=== PATIENT | male | born 1940 | race Caucasian/White ===

== ENCOUNTER 2022-05-24 14:22 | Emergency (ER) | payer OTHER ==
--- NOTE | 2022-05-24 14:28 | ED Fall/Injury ---
General Stated Complaint: FALL/HEAD History of Present Illness Date Seen by Provider: May 24, 2022 Time Seen by Provider: 14:27 Initial Comments 82-year-old male with PMH of DM2/HTN/history of brain clot/unknown if on blood thinner, but patient is taking baby aspirin daily, is here with complaints of a fall last night at 9 PM where he missed a step coming off the deck and fell 1 foot down , sitting forward onto cement. Today patient feels sore with pain on his right wrist and forearm and unable to flex his right arm all the way, with left-sided rib pain. Patient reports mild head strike and his forehead. Denies LOC, dizziness, palpitations, chest pain, blurry vision, hearing abnormalities. Patient is able to ambulate on his own. Allergies and Home Medications Allergies Coded Allergies: No Known Drug Allergies (Unverified , 05/24/22) Patient Home Medication List Home Medication List Reviewed: Yes Review of Systems Review of Systems Constitutional: no symptoms reported Eyes: No Symptoms Reported Ears, Nose, Mouth, Throat: see HPI Respiratory: no symptoms reported Cardiovascular: no symptoms reported Gastrointestinal: no symptoms reported Genitourinary: no symptoms reported Musculoskeletal: see HPI, joint pain, muscle stiffness Skin: no symptoms reported Psychiatric/Neurological: No Symptoms Reported Physical Exam Vital Signs Vital Signs - First Documented 05/24/22 14:46 Temp 37.0 Pulse 88 Resp 16 B/P (MAP) 181/92 (121) Pulse Ox 95 O2 Delivery Room Air Capillary Refill : Height, Weight, BMI Height: '" Weight: lbs. oz. kg; BMI Method: General Appearance: WD/WN, no apparent distress HEENT: PERRL/EOMI, normal ENT inspection Neck: non-tender, full range of motion, supple, normal inspection Cardiovascular: regular rate, rhythm Respiratory: lungs clear, normal breath sounds, no respiratory distress, no accessory muscle use, other (Tenderness to left-sided ribs 9, 10, 11, 12.) Gastrointestinal: normal bowel sounds, non tender, soft Back: normal inspection, no vertebral tenderness Extremities: normal inspection, other (Right upper extremity: No localized tenderness however patient is unable to completely flex the arm at the elbow without having pain. Range of motion is restricted due to this pain on flexion. N/V bundle intact. 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 FALL: NONDISPLACED LEFT 7th RIB/ Left elbow effusion: - CT HEAD: No acute findings -Unknown if patient is on a blood thinner or not, but since patient is unsure, will do CT scan to rule out a bleed - XR RIGHT ELBOW/ FOREARM/ WRIST: Right elbow effusion. No displaced fracture identified. - XR RIBS/ CHEST: nondisplaced left posterolateral 7th rib, no acute lung changes except atelectasis at bases fracture. - Incentive spirometry to help expand lung volumes - Advised to follow up for repeat x-ray of right forearm/ elbow, if pain persists past 7 days without improvement, since some fractures only show up on x-ray after a week. - Advised Tylenol or ibuprofen as needed for mild to moderate pain, as well as [id number] lidoderm patches. Prescription given for Percocet, take 1 tablet every 6 hours as needed for severe pain - Sling and ice advised for arm - Follow up with PCP in the next 3 to 7 days. Call for appointment. -Patient is from [place] and visiting in [place], so advised him to make a PCP appointment once he gets back home -The patient was seen in the ED, and treated appropriately to presentation at a specific point in time. Patient is informed that there is a possibility that disease and illness can evolve and change in acuity rapidly or slowly after patient is discharged from the ER. Precautionary advice given to the patient for immediate return to ER if symptoms worsen or do not resolve, and to seek emergency care sooner rather than later. Pt also advised on the importance of PCP follow up and compliance with management and follow up plan with PCP and/or specialist, as this is part of the management plan. Pt verbally expressed understanding. Diagnostic Imaging Diagonstic Imaging: Xray, CT Plain Films/CT/US/NM/MRI: forearm, elbow, chest, head Comments [facility] [place] NAME: BIBI BERNARD [facility] REC#: [id number] PT STATUS: REG ER : 1940 PHYSICIAN: LINDSAY POLLACK MD ADMIT DATE: 05/24/22/ER FS Signed Date of Exam:05/24/22 RIBS/BILATERAL WITH CHEST INDICATION: Fall. Bilateral rib pain. FINDINGS: There is mild atelectasis at the lung bases. The lungs are otherwise clear. There is no pleural collection or hemothorax. There is no pneumothorax. Pulmonary vascularity appears appropriate. The bilateral rib series demonstrates no finding of a right-sided rib fracture. There is a subtle questionable fracture of the posterior lateral left 7th rib. This is nondisplaced. IMPRESSION: 1. Questionable nondisplaced left posterolateral 7th rib fracture. No other rib fractures are identified. 2. Basilar pulmonary atelectasis. Lungs otherwise appear clear. No pneumothorax or hemothorax. Dictated by: Dictated on workstation # [id number] Dict: 05/24/22 1519 Trans: 05/24/22 1524 [facility] [id number] Interpreted by: MICHELLE ALFARO MD Electronically signed by: MICHELLE ALFARO MD 05/24/22 1524 [facility] [place] NAME: BIBI BERNARD [facility] REC#: [id number] PT STATUS: REG ER : 1940 PHYSICIAN: LINDSAY POLLACK MD ADMIT DATE: 05/24/22/ER FS Draft Date of Exam:05/24/22 FOREARM 2 VIEW RIGHT INDICATION: Right forearm pain after fall. COMPARISON: None. DISCUSSION: Two views of the right forearm were obtained. Right elbow effusion is noted. No fracture or dislocation otherwise. The alignment is anatomic. No foreign body. IMPRESSION: Small right elbow effusion. No fracture identified otherwise. Dictated on workstation # [id number] Dict: 05/24/22 1519 Trans: 05/24/22 1523 [facility] [id number] Interpreted by: PHILIP LEIVA MD Electronically signed by: [facility] [place] [place] NAME: BIBI BERNARD [facility] REC#: [id number] PT STATUS: REG ER : 1940 PHYSICIAN: LINDSAY POLLACK MD ADMIT DATE: 05/24/22/ER FS Draft Date of Exam:05/24/22 ELBOW 3 VIEW RIGHT INDICATION: Fall with right elbow pain. COMPARISON: None. DISCUSSION: Three views of the right elbow were obtained. Small effusion is present. Mild degenerative disease noted. No displaced fracture identified. An occult fracture cannot be excluded. No dislocation. IMPRESSION: Right elbow effusion. No displaced fracture identified. Dictated on workstation # [id number] Dict: 05/24/22 1518 Trans: 05/24/22 1519 [facility] [id number] Interpreted by: PHILIP LEIVA MD Electronically signed by: NAME: BIBI BERNARD [facility] REC#: [id number] PT STATUS: REG ER : 1940 PHYSICIAN: LINDSAY POLLACK MD ADMIT DATE: 05/24/22/ER FS Draft Date of Exam:05/24/22 CT HEAD WO PROCEDURE: CT head without contrast. TECHNIQUE: Multiple contiguous axial images were obtained through the brain without the use of intravenous contrast. Auto Exposure Controls were utilized during the CT exam to meet ALARA standards for radiation dose reduction. INDICATION: Fall. Head injury and head pain. FINDINGS: There is no CT finding of acute intracranial hemorrhage. There is no evidence of an abnormal extra-axial collection. There is age related global volume loss. There is no finding of hydrocephalus. There is no territorial loss of osuna-white differentiation or evidence of vasogenic edema. Basilar cisterns are patent. The posterior fossa demonstrates no acute process. The mastoid air cells are clear. The paranasal sinuses are clear. Note is made of advanced atherosclerotic calcifications within the carotid siphons. The vasculature intracranially is of uniform density. This may relate to some hemoconcentration. There is no acute calvarial abnormality. IMPRESSION: Age-related global volume loss without CT evidence of an acute intracranial abnormality. Dictated on workstation # [id number] Dict: 05/24/22 1517 Trans: 05/24/22 1522 [facility] [id number] Interpreted by: MICHELLE ALFARO MD Electronically signed by: Departure Impression Primary Impression: Fall (on) (from) other stairs and steps, initial encounter Additional Impressions: Closed traumatic nondisplaced fracture of rib Effusion of elbow joint, right Disposition: 01 HOME, SELF-CARE Condition: Improved Departure-Patient Inst. Patient Instructions: How to Use an Incentive Spirometer, Joint Pain, Preventing Falls in Older Adults, Rib Fracture (DC), Rib Fractures in Adults Add. Discharge Instructions: - Incentive spirometry to help expand lung volumes - Advised Tylenol or ibuprofen as needed for mild to moderate pain, as well as [id number] lidoderm patches. Prescription given for Percocet, take 1 tablet every 6 hours as needed for severe pain - Sling and ice advised for arm. Advised to follow up for repeat x-ray of right forearm/ elbow, if pain persists past 7 days without improvement, since some fractures only show up on x-ray after a week. - Follow up with PCP in the next 3 to 7 days. Call for appointment. -Patient is from [place] and visiting in [place], so advised him to make a PCP appointment once he gets back home Scripts Oxycodone HCl/Acetaminophen (Percocet 5-325 mg Tablet) 1 Each Tablet 1 TAB PO Q6H PRN for PAIN SEVERE MDD 6 TABS for 5 Days, #6 TAB Prov: LINDSAY POLLACK MD 05/24/22 LINDSAY POLLACK MD May 24, 2022 14:28
--- NOTE | 2022-05-24 15:20 | Diagnostic Imaging Report ---
INDICATION: Fall with right elbow pain. COMPARISON: None. DISCUSSION: Three views of the right elbow were obtained. Small effusion is present. Mild degenerative disease noted. No displaced fracture identified. An occult fracture cannot be excluded. No dislocation. IMPRESSION: Right elbow effusion. No displaced fracture identified. Dictated by: Dictated on workstation # [id number]
--- NOTE | 2022-05-24 15:22 | Diagnostic Imaging Report ---
PROCEDURE: CT head without contrast. TECHNIQUE: Multiple contiguous axial images were obtained through the brain without the use of intravenous contrast. Auto Exposure Controls were utilized during the CT exam to meet ALARA standards for radiation dose reduction. INDICATION: Fall. Head injury and head pain. FINDINGS: There is no CT finding of acute intracranial hemorrhage. There is no evidence of an abnormal extra-axial collection. There is age related global volume loss. There is no finding of hydrocephalus. There is no territorial loss of osuna-white differentiation or evidence of vasogenic edema. Basilar cisterns are patent. The posterior fossa demonstrates no acute process. The mastoid air cells are clear. The paranasal sinuses are clear. Note is made of advanced atherosclerotic calcifications within the carotid siphons. The vasculature intracranially is of uniform density. This may relate to some hemoconcentration. There is no acute calvarial abnormality. IMPRESSION: Age-related global volume loss without CT evidence of an acute intracranial abnormality. Dictated by: Dictated on workstation # [id number]
--- NOTE | 2022-05-24 15:23 | Diagnostic Imaging Report ---
INDICATION: Right forearm pain after fall. COMPARISON: None. DISCUSSION: Two views of the right forearm were obtained. Right elbow effusion is noted. No fracture or dislocation otherwise. The alignment is anatomic. No foreign body. IMPRESSION: Small right elbow effusion. No fracture identified otherwise. Dictated by: Dictated on workstation # [id number]
--- NOTE | 2022-05-24 15:26 | Diagnostic Imaging Report ---
INDICATION: Fall. Bilateral rib pain. FINDINGS: There is mild atelectasis at the lung bases. The lungs are otherwise clear. There is no pleural collection or hemothorax. There is no pneumothorax. Pulmonary vascularity appears appropriate. The bilateral rib series demonstrates no finding of a right-sided rib fracture. There is a subtle questionable fracture of the posterior lateral left 7th rib. This is nondisplaced. IMPRESSION: 1. Questionable nondisplaced left posterolateral 7th rib fracture. No other rib fractures are identified. 2. Basilar pulmonary atelectasis. Lungs otherwise appear clear. No pneumothorax or hemothorax. Dictated by: Dictated on workstation # [id number]
[2022-05-24] MEDS ORDERED: oxyCODONE/APAP 5/325MG (PERCOCET 5) TABLET PO ONE (15:45)
[2022-05-24] MEDS ORDERED: OXYC1TAB87 PO (15:47)
[2022-05-24 16:00] VITALS: BP 178/87
== END 2022-05-24 16:00 | disposition home or self-care (01) ==
LOC: ER FS 14:29
DX: S22.32XA Fracture of one rib, left side, initial encounter for closed fracture (principal); M25.421 Effusion, right elbow; Z79.82 Long term (current) use of aspirin; W10.9XXA Fall (on) (from) unspecified stairs and steps, initial encounter; W22.09XA Striking against other stationary object, initial encounter
CPT/HCPCS: 70450; 71111; 73080; 73090; 94664